=== PATIENT | female | born 1945 | race Caucasian/White ===

== ENCOUNTER 2020-01-11 22:30 | Emergency (ER) | payer MEDICARE, SELFPAY ==
[2020-01-11 22:36] VITALS: TEMP 33
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
[2020-01-11 23:05] LABS: COVID19 -Nasal RAPID Negative (Negative)
--- NOTE | 2020-01-11 23:10 | PC.NURSE ---
Organ donation hotline called. Pt not viable for donation besides her corneas. Went to speak with and he states that she is not an organ donor and will uphold her wishes of not donating her organs. Hotline informed that pt is not an organ donor. Spoke with Johnny, case # [id number]
--- NOTE | 2020-01-11 23:30 | PC.NURSE ---
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 [facility] being sent to procure pt. All lines and tubes left in place. Clothing going with pt, jewelry sent with
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
--- NOTE | 2020-01-12 00:09 | PC.NURSE ---
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 Son arrived and is at the beside.
--- NOTE | 2020-01-12 00:44 | PC.NURSE ---
[facility] here to merchandise pickup/receiving associate pt. Family at bedside. Copy of Disposition of Remains Release and a facesheet sent with [facility]
== END 2020-01-12 01:05 | disposition expired ==
PROVIDERS: Emergency Provider Emergency Medicine
DX: I46.9 Cardiac arrest, cause unspecified (principal); S09.90XA Unspecified injury of head, initial encounter; W19.XXXA Unspecified fall, initial encounter
CPT/HCPCS: 87635; 92950; 94770; 99284; 99285; J0171